=== PATIENT | male | born 2005 | race Caucasian/White ===

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

== ENCOUNTER → 2024-07-14 | Outpatient (REF) | payer OTHER ==
[2024-07-14 13:49] LABS: ALKALINE PHOSPHATASE 83 U/L (40-129); ALT/SGPT 18 U/L (7.0-40); AST/SGOT 17 U/L (<34); BILIRUBIN,TOTAL 0.7 MG/DL (0.3-1.2); BLOOD UREA NITROGEN 20 MG/DL (9-23); CALCIUM LEVEL 9.3 MG/DL (8.5-10.1); CARBON DIOXIDE LEVEL 32 MMOL/L (20-31); CHLORIDE LEVEL 103 MMOL/L (98-107); CHOLESTEROL LEVEL 136 MG/DL (<200); CHOLESTEROL RISK RATIO 3.91 (<5); CREATININE FOR GFR 1.09 MG/DL (0.70-1.30); GLUCOSE, FASTING 87 MG/DL (60-100); HDL CHOLESTEROL 34.7 MG/DL (>40); LDL CHOLESTEROL 80.5 MG/DL (<100); NON-HDL-C 101.3 MG/DL; POTASSIUM SERUM 4.3 MMOL/L (3.5-5.1); SODIUM LEVEL 144 MMOL/L (136-145); TOTAL PROTEIN 6.7 G/DL (5.7-8.2); TRIGLYCERIDES LEVEL 104 MG/DL (<150)
[2024-07-14 13:52] LABS: FREE T4 1.05 NG/DL (0.83-1.43)
[2024-07-14 13:53] LABS: FERRITIN 233.9 NG/ML (10.5-307.3)
[2024-07-14 13:54] LABS: TOTAL 25(OH) VITAMIN D 19.4 NG/ML (20.0-100.0)
[2024-07-14 13:55] LABS: BASO # 0.1 10^3/uL (0.0-0.2); BASO % 0.7 % (0.0-1.0); EOS # 0.3 10^3/uL (0.0-0.5); EOS % 3.6 % (0.0-3.0); HEMATOCRIT 48.2 % (42.0-52.0); HEMOGLOBIN 16.4 g/dl (13.5-17.5); LYMPH # 2.4 10^3/uL (1.5-5.0); LYMPH % 34.4 % (24.0-44.0); MEAN CORPUSCULAR HEMOGLOBIN 29.9 pg (27.0-33.0); MEAN CORPUSCULAR VOLUME 87.8 fl (80.0-96.0); MONO # 0.7 10^3/uL (0.0-0.8); MONO % 10.3 % (2.0-8.0); NEUTROPHILS # 3.5 10^3/uL (1.5-8.5); NEUTROPHILS % 50.7 % (36.0-66.0); PLATELET COUNT, AUTOMATED 205 10^3/uL (150-450); RED BLOOD COUNT 5.49 10^6/uL (4.30-6.10); WHITE BLOOD COUNT 6.9 10^3/uL (4.0-10.0)
[2024-07-14 14:07] LABS: HEMOGLOBIN A1c 4.9 % (4.0-6.0)
== END ==
LOC: M SFHCADAM 09:25
PROVIDERS: ATTEND Physician Assistant
DX: F90.9 Attention-deficit hyperactivity disorder, unspecified type (principal); F41.9 Anxiety disorder, unspecified; Z68.33 Body mass index [BMI] 33.0-33.9, adult; E66.811 Obesity, class 1; Z13.1 Encounter for screening for diabetes mellitus; Z13.220 Encounter for screening for lipoid disorders; Z82.49 Family history of ischemic heart disease and other diseases of the circulatory system; E55.9 Vitamin D deficiency, unspecified